=== PATIENT | male | born 1995 | race Two or more races ===

== ENCOUNTER 2018-07-02 14:44 | Emergency (ER) | payer BC ==
[~2018-07-02] VITALS: Ht 172.7 cm; Wt 68.0 kg
[2018-07-02] MEDS ORDERED: ONDANSETRON PF 4 MG/2 ML VIAL. IV ONE (15:15)
[2018-07-02] MEDS ORDERED: FAMOTIDINE 20 MG/2 ML VIAL IVP ONE (15:15)
[2018-07-02] MEDS ORDERED: IV NORMAL SALINE 1000ML BAG 1,000 ML IV ONE (15:15)
--- NOTE | 2018-07-02 15:17 | PHYS DOC ---
Past Medical History Past Medical History: No Pertinent History Past Surgical History: Other Additional Past Surgical Histo: "on my head" Additional Information: 1 cigarette daily Alcohol Use: Occasionally Drug Use: None Adult General Chief Complaint Chief Complaint: NAUSEA/VOMITING/DIARRHA HPI HPI Patient is a 22 year old male who presents with this morning began having epigastric pain with vomiting only. Patient states the pain is sharp when he vomits. Patient rates the pain as 6 out of 10 when it occurs. Patient has vomited twice this morning. Patient has tried to eat and he has vomited right after eating. Patient states he only drank one beer yesterday. Patient states that he will get the chills after vomiting. Patient denies diarrhea, fever, dysuria, constipation, chest pain, shortness of air, dizziness. Review of Systems Review of Systems Constitutional: Denies fever or chills [] Eyes: Denies change in visual acuity, redness, or eye pain [] HENT: Denies nasal congestion or sore throat [] Respiratory: Denies cough or shortness of breath [] Cardiovascular: No additional information not addressed in HPI [] GI: Epigastric abdominal pain, nausea, vomiting, denies bloody stools or diarrhea [] : Denies dysuria or hematuria [] Musculoskeletal: Denies back pain or joint pain [] Integument: Denies rash or skin lesions [] Neurologic: Denies headache, focal weakness or sensory changes [] All other systems were reviewed and found to be within normal limits, except as documented in this note. Current Medications Current Medications Current Medications Medications (Trade) Dose Ordered Sig/Elsy Start Time Stop Time Status Last Admin Dose Admin Famotidine (Pepcid Vial) 20 mg 1X ONCE 07/02/18 15:15 07/02/18 15:16 DC 07/02/18 15:29 20 MG Info (CONTRAST GIVEN -- Rx MONITORING) 1 each PRN DAILY PRN 07/02/18 16:00 07/04/18 15:59 Iohexol (Omnipaque 240 Mg/ml) 50 ml 1X ONCE 07/02/18 15:45 07/02/18 15:46 DC 07/02/18 15:45 50 ML Iohexol (Omnipaque 300 Mg/ml) 75 ml 1X ONCE 07/02/18 15:45 07/02/18 15:46 DC 07/02/18 15:45 75 ML Ondansetron HCl (Zofran) 4 mg 1X ONCE 07/02/18 15:15 07/02/18 15:16 DC 07/02/18 15:33 4 MG Sodium Chloride 1,000 ml @ 1,000 mls/hr 1X ONCE 07/02/18 15:15 07/02/18 16:14 DC 07/02/18 15:27 1,000 MLS/HR Allergies Allergies Allergies Coded Allergies Type Severity Reaction Last Updated Verified No Known Drug Allergies 07/02/18 No Physical Exam Physical Exam Constitutional: Well developed, well nourished, no acute distress, non-toxic appearance. [] HENT: Normocephalic, atraumatic, bilateral external ears normal, oropharynx moist, no oral exudates, nose normal. [] Eyes: PERRLA, EOMI, conjunctiva normal, no discharge. [] Neck: Normal range of motion, no tenderness, supple, no stridor. [] Cardiovascular:Heart rate regular rhythm, no murmur [] Lungs & Thorax: Bilateral breath sounds clear to auscultation [] Abdomen: Bowel sounds normal, soft, no tenderness, no masses, no pulsatile masses. [] Skin: Warm, dry, no erythema, no rash. [] Back: No tenderness, no CVA tenderness. [] Extremities: No tenderness, no cyanosis, no clubbing, ROM intact, no edema. [] Neurologic: Alert and oriented X 3, normal motor function, normal sensory function, no focal deficits noted. [] Psychologic: Affect normal, judgement normal, mood normal. Normal Physical Exam [] Current Patient Data Vital Signs Vital Signs Date Time Temp Pulse Resp B/P (MAP) Pulse Ox O2 Delivery O2 Flow Rate FiO2 07/02/18 15:34 83 16 119/72 (88) 100 Room Air 07/02/18 15:00 98.8 98.8 Lab Values Laboratory Tests Test 07/02/18 15:25 07/02/18 15:55 White Blood Count 6.1 x10^3/uL (4.0-11.0) Red Blood Count 5.21 x10^6/uL (4.30-5.70) Hemoglobin 15.1 g/dL (13.0-17.5) Hematocrit 44.4 % (39.0-53.0) Mean Corpuscular Volume 85 fL (79-100) Mean Corpuscular Hemoglobin 29 pg (25-35) Mean Corpuscular Hemoglobin Concent 34 g/dL (31-37) Red Cell Distribution Width 13.4 % (11.5-14.5) Platelet Count 274 x10^3/uL (140-400) Neutrophils (%) (Auto) 69 % (31-73) Lymphocytes (%) (Auto) 21 % (24-48) L Monocytes (%) (Auto) 8 % (0-9) Eosinophils (%) (Auto) 1 % (0-3) Basophils (%) (Auto) 1 % (0-3) Neutrophils # (Auto) 4.2 x10^3uL (1.8-7.7) Lymphocytes # (Auto) 1.3 x10^3/uL (1.0-4.8) Monocytes # (Auto) 0.5 x10^3/uL (0.0-1.1) Eosinophils # (Auto) 0.1 x10^3/uL (0.0-0.7) Basophils # (Auto) 0.0 x10^3/uL (0.0-0.2) Sodium Level 139 mmol/L (136-145) Potassium Level 4.4 mmol/L (3.5-5.1) Chloride Level 99 mmol/L (98-107) Carbon Dioxide Level 31 mmol/L (21-32) Anion Gap 9 (6-14) Blood Urea Nitrogen 12 mg/dL (8-26) Creatinine 0.9 mg/dL (0.7-1.3) Estimated GFR (Cockcroft-Gault) 104.6 BUN/Creatinine Ratio 13 (6-20) Glucose Level 123 mg/dL (70-99) H Calcium Level 9.7 mg/dL (8.5-10.1) Total Bilirubin 0.4 mg/dL (0.2-1.0) Aspartate Amino Transferase (AST) 23 U/L (15-37) Alanine Aminotransferase (ALT) 26 U/L (16-63) Alkaline Phosphatase 82 U/L (46-116) Total Protein 8.1 g/dL (6.4-8.2) Albumin 4.3 g/dL (3.4-5.0) Albumin/Globulin Ratio 1.1 (1.0-1.7) Lipase 122 U/L (73-393) Ethyl Alcohol Level < 10 mg/dL (0-10) Urine Collection Type Unknown Urine Color Yellow Urine Clarity Clear Urine pH 8.0 Urine Specific [place] 1.010 Urine Protein Negative mg/dL (NEG-TRACE) Urine Glucose (UA) Negative mg/dL (NEG) Urine Ketones (Stick) Negative mg/dL (NEG) Urine Blood Large (NEG) Urine Nitrite Negative (NEG) Urine Bilirubin Negative (NEG) Urine Urobilinogen Dipstick 0.2 mg/dL (0.2 mg/dL) Urine Leukocyte Esterase Negative (NEG) Urine RBC >40 /HPF (0-2) Urine WBC 0 /HPF (0-4) Urine Bacteria 0 /HPF (0-FEW) Urine Opiates Screen Neg (NEG) Urine Methadone Screen Neg (NEG) Urine Barbiturates Neg (NEG) Urine Phencyclidine Screen Neg (NEG) Urine Amphetamine/Methamphetamine Neg (NEG) Urine Benzodiazepines Screen Neg (NEG) Urine Cocaine Screen Pos (NEG) Urine Cannabinoids Screen Neg (NEG) Urine Ethyl Alcohol Neg (NEG) Laboratory Tests 07/02/18 15:25 Laboratory Tests 07/02/18 15:25 EKG EKG [] Radiology/Procedures Radiology/Procedures [] Impressions: [facility] [address] [place] [address] IMAGING REPORT Signed PATIENT: MIGEL VILLALTA ACCOUNT: [id number] : 1995 LOCATION: ER AGE: 22 SEX: M EXAM STATUS: REG ER ORD. PHYSICIAN: ARCADIO TEIXEIRA APRN REASON: pain PROCEDURE: CT ABD PELV W/ORAL&IV CONTRAST CT ABD PELV W/ORAL IV CONTRAST Indication: ABDOMEN PAIN, VOMITING
IV OMNI 300 75 MLS
NO PREVIOUS Exposure: One or more of the following individualized dose reduction techniques were utilized for this examination: 1. Automated exposure control 2. Adjustment of the mA and/or kV according to patient size 3. Use of iterative reconstruction technique. Technique: Intravenous contrast was given. Oral contrast was given. FINDINGS: No prior study for comparison. Lung bases are clear. Liver and spleen unremarkable. Pancreas unremarkable. No evidence of adrenal mass. Kidneys demonstrate symmetric enhancement, no focal lesion or hydronephrosis. No calcified gallstone. Aorta is nonaneurysmal. No significant lymph node enlargement. No evidence of acute colitis. No evidence of bowel obstruction. A segment of what is thought to be a normal appendix is visualized. No evidence of pneumoperitoneum or significant ascites. No significant urinary bladder wall thickening. No evidence of pelvic mass. There is no evidence of aggressive bone destruction. IMPRESSION: No evidence of acute abnormality in the abdomen or pelvis. Electronically signed by: Keagan Aldrich MD (07/02/2018 4:59 PM) [id number] DICTATED and SIGNED BY: KEAGAN ALDRICH MD DATE: 07/02/18 1228 Course & Med Decision Making Course & Med Decision Making Patient is a 22 year old male who presents with this morning began having epigastric pain with vomiting only. Patient states the pain is sharp when he vomits. Patient rates the pain as 6 out of 10 when it occurs. Patient has vomited twice this morning. Patient has tried to eat and he has vomited right after eating. Patient states he only drank one beer yesterday. Patient states that he will get the chills after vomiting. Patient denies diarrhea, fever, dysuria, constipation, chest pain, shortness of air, dizziness. Alert and oriented. Speaks in full clear sentences. Ambulatory with a steady gait. Abdomen is soft and nontender. Lungs are clear to auscultation in all lobes. Vital signs are within normal limits. Afebrile. PERRLA. Skin is pink warm and dry. Mucous membranes are moist. No peripheral edema. Blood work unremarkable. Urinalysis shows red blood cells. Patient is positive for cocaine. Patient has been PO challenged and has not vomited. Patient will be treated for nausea vomiting and a urinary tract infection. Patient is to follow-up with his primary care doctor for a urine recheck. Dragon Disclaimer Dragon Disclaimer This electronic medical record was generated, in whole or in part, using a voice recognition dictation system. Departure Departure Impression: Primary Impression: Nausea & vomiting Additional Impression: UTI (urinary tract infection) Disposition: HOME, SELF-CARE Condition: STABLE Referrals: NO PCP (PCP) Patient Instructions: Nausea and Vomiting, Urinary Tract Infection Additional Instructions: Follow-up with her primary care doctor to have your urinary tract. Take medication as prescribed. Drink plenty of fluids. Scripts Ondansetron (ONDANSETRON ODT) 4 Mg Tab.rapdis 1 TAB PO PRN Q6-8HRS, #20 TAB Prov: ARCADIO TEIXEIRA APRN 07/02/18 Ciprofloxacin Hcl (CIPRO) 500 Mg Tablet 1 TAB PO BID, #20 TAB Prov: ARCADIO TEIXEIRA APRN 07/02/18 Problem Qualifiers Primary Impression: Nausea & vomiting Vomiting type: unspecified Vomiting Intractability: non-intractable Qualified Codes: R11.2 - Nausea with vomiting, unspecified Additional Impression: UTI (urinary tract infection) Urinary tract infection type: site unspecified Hematuria presence: with hematuria Qualified Codes: N39.0 - Urinary tract infection, site not specified ; R31.9 - Hematuria, unspecified ARCADIO TEIXEIRA APRN Jul 02, 2018 15:17
[2018-07-02 15:40] LABS: BASO % 1 % (0-3); EOS # 0.1 x10^3/uL (0.0-0.7); EOS % 1 % (0-3); HEMATOCRIT 44.4 % (39.0-53.0); HEMOGLOBIN 15.1 g/dL (13.0-17.5); LYMPH # 1.3 x10^3/uL (1.0-4.8); LYMPH % 21 % (24-48); MEAN CORPUSCULAR HEMOGLOBIN 29 pg (25-35); MEAN CORPUSCULAR HGB CONC 34 g/dL (31-37); MEAN CORPUSCULAR VOLUME 85 fL (79-100); MONO # 0.5 x10^3/uL (0.0-1.1); MONO % 8 % (0-9); NEUT # 4.2 x10^3uL (1.8-7.7); NEUT % 69 % (31-73); PLATELET COUNT 274 x10^3/uL (140-400); RED BLOOD COUNT 5.21 x10^6/uL (4.30-5.70); RED CELL DISTRIBUTION WIDTH 13.4 % (11.5-14.5); WHITE BLOOD COUNT 6.1 x10^3/uL (4.0-11.0)
[2018-07-02] MEDS ORDERED: IOHEXOL 240 MG/ML 50ML VIAL. PO ONE (15:45)
[2018-07-02] MEDS ORDERED: IOHEXOL 300 MG/ML 100ML VIAL. IV ONE (15:45)
[2018-07-02 15:54] LABS: CALCIUM 9.7 mg/dL (8.5-10.1); CREATININE 0.9 mg/dL (0.7-1.3); GFR 104.6; POTASSIUM 4.4 mmol/L (3.5-5.1)
[2018-07-02 15:59] LABS: ALBUMIN 4.3 g/dL (3.4-5.0); ALBUMIN/GLOBULIN RATIO 1.1 (1.0-1.7); TOTAL BILIRUBIN 0.4 mg/dL (0.2-1.0); TOTAL PROTEIN 8.1 g/dL (6.4-8.2)
[2018-07-02] MEDS ORDERED: CONTRAST GIVEN. MC PRN (16:00)
[2018-07-02 16:04] LABS: BILIRUBIN,URINE NEGATIVE (NEG); CLARITY,URINE CLEAR; COLOR,URINE YELLOW; NITRITE,URINE NEGATIVE (NEG); PROTEIN,URINE NEGATIVE (NEG-TRACE); UROBILINOGEN,URINE 0.2 mg/dL (0.2 mg/dL)
[2018-07-02 16:16] LABS: AMPHETAMINE/METHAMPHETAMINE NEG (NEG); BARBITURATES NEG (NEG); BENZODIAZEPINES NEG (NEG); CANNABINOIDS NEG (NEG); COCAINE POS (NEG); METHADONE NEG (NEG); OPIATES NEG (NEG); PHENCYCLIDINE NEG (NEG)
[2018-07-02 16:17] LABS: BACTERIA,URINE 0 /HPF (0-FEW); RBC,URINE >40 /HPF (0-2); WBC,URINE 0 /HPF (0-4)
--- NOTE | 2018-07-02 17:03 | RAD ---
CT ABD PELV W/ORAL IV CONTRAST Indication: ABDOMEN PAIN, VOMITING
IV OMNI 300 75 MLS
NO PREVIOUS Exposure: One or more of the following individualized dose reduction techniques were utilized for this examination: 1. Automated exposure control 2. Adjustment of the mA and/or kV according to patient size 3. Use of iterative reconstruction technique. Technique: Intravenous contrast was given. Oral contrast was given. FINDINGS: No prior study for comparison. Lung bases are clear. Liver and spleen unremarkable. Pancreas unremarkable. No evidence of adrenal mass. Kidneys demonstrate symmetric enhancement, no focal lesion or hydronephrosis. No calcified gallstone. Aorta is nonaneurysmal. No significant lymph node enlargement. No evidence of acute colitis. No evidence of bowel obstruction. A segment of what is thought to be a normal appendix is visualized. No evidence of pneumoperitoneum or significant ascites. No significant urinary bladder wall thickening. No evidence of pelvic mass. There is no evidence of aggressive bone destruction. IMPRESSION: No evidence of acute abnormality in the abdomen or pelvis. Electronically signed by: Keagan Aldrich MD (07/02/2018 4:59 PM) [id number]
[2018-07-02] MEDS ORDERED: CIPR500T94 PO (17:23)
[2018-07-02] MEDS ORDERED: ONDA4TAB12 PO (17:23)
[2018-07-02 17:27] VITALS: BP 113/53
== END 2018-07-02 17:40 | disposition home or self-care (01) ==
LOC: ER 14:44
DX: N39.0 Urinary tract infection, site not specified (principal); R11.2 Nausea with vomiting, unspecified; R10.13 Epigastric pain; F17.210 Nicotine dependence, cigarettes, uncomplicated
CPT/HCPCS: 36415; 74177; 80053; 80307; 81001; 83690; 85025; 96361; 96374; 96375; 99284; G0480; J2405; J3490; J7030; Q9966; Q9967